=== PATIENT | female | born 1960 | race American Indian/Alaskan Native ===

== ENCOUNTER 2017-11-25 10:12 | Emergency (ER) | payer OTHER, BC ==
[2017-11-25 10:29] VITALS: RESP 18; TEMP 98.4; BMI 37.5
[2017-11-25 12:26] VITALS: BP 157/90; PULSE 80; O2SAT 98
--- NOTE | 2017-11-25 12:30 | RAD ---
PROCEDURE: Right Knee Radiographs. HISTORY: knee pain s/p trauma COMPARISON: None. FINDINGS: BONES: Bone alignment and mineralization are normal. There is no acute displaced fracture or bone destruction. JOINTS: There is mild tricompartmental degenerative osteoarthrosis with reduced joint spaces and marginal spurring, worse in the medial compartment. JOINT EFFUSION: There is a small suprapatellar joint effusion. OTHER FINDINGS: None. IMPRESSION: No acute fracture or dislocation. Mild tricompartmental degenerative osteoarthrosis, worse in the medial compartment. Small suprapatellar joint effusion
--- NOTE | 2017-11-25 12:30 | ED PDOC ---
Arrival/HPI - General Chief Complaint: Trauma Time Seen by Provider: 11/25/17 10:38 Historian: Patient - History of Present Illness Narrative History of Present Illness (Text): 11/25/17 12:26 57yo female with PMhx of hypertension who present to ED with complaint of right knee and ankle pain s/p trauma yesterday. Patient states her feet got caught on something yesterday s she twisted her ankle, fell and hit knee on the floor. Notes that pain started this morning with ambulation. Did not take any medication. Paul LOc, nausea, vomiting, focal weakness, any other complaint. Past Medical History - Provider Review Nursing Documentation Reviewed: Yes - Infectious Disease Hx of Infectious Diseases: None - Tetanus Immunization Tetanus Immunization: Unknown - Reproductive Menopause: Yes - Cardiac Hx Cardiac Disorders: Yes Hx Hypertension: Yes - Pulmonary Hx Respiratory Disorders: No - Neurological Hx Neurological Disorder: No - HEENT Hx HEENT Disorder: No - Renal Hx Renal Disorder: No - Endocrine/Metabolic Hx Endocrine Disorders: No - Hematological/Oncological Hx Blood Disorders: No Hx Blood Transfusions: No Hx Blood Transfusion Reaction: No - Integumentary Hx Dermatological Disorder: No - Musculoskeletal/Rheumatological Hx Musculoskeletal Disorders: No - Gastrointestinal Hx Gastrointestinal Disorders: No - Genitourinary/Gynecological Hx Genitourinary Disorders: No - Psychiatric Hx Psychophysiologic Disorder: No Hx Emotional Abuse: No Hx Physical Abuse: No Hx Substance Use: No - Surgical History Hx Hysterectomy: Yes (partial) Other/Comment: fibroid removal - Anesthesia Hx Anesthesia: Yes Hx Anesthesia Reactions: No Hx Malignant Hyperthermia: No - Suicidal Assessment Feels Threatened In Home Enviroment: No Family/Social History - Physician Review Nursing Documentation Reviewed: Yes Family/Social History: Unknown Family HX Smoking Status: Never Smoked Hx Alcohol Use: No Hx Substance Use: No Hx Substance Use Treatment: No Allergies/Home Meds Allergies/Adverse Reactions: Allergies shellfish derived Allergy (Verified 09/07/16 23:40) ITCHING Home Medications: Home Meds Medication Instructions Recorded Confirmed Esomeprazole Magnesium [Nexium] 40 mg PO DAILY 12/29/12 11/25/17 Enalapril Maleate [Vasotec] 2 mg PO DAILY 11/25/17 11/25/17 Review of Systems - Physician Review All systems were reviewed & negative as marked: Yes - Review of Systems Constitutional: Normal Eyes: Normal ENT: Normal Respiratory: Normal Cardiovascular: Normal Gastrointestinal: Normal Genitourinary Female: Normal Musculoskeletal: Arthralgias (right knee/ankle pain) Skin: Normal Neurological: Normal Endocrine: Normal Hemo/Lymphatic: Normal Psychiatric: Normal Physical Exam Vital Signs Reviewed: Yes Vital Signs Temp Pulse Resp BP Pulse Ox 11/25/17 12:25 80 18 157/90 H 98 11/25/17 10:30 81 158/95 H 97 11/25/17 10:29 98.4 F 83 18 159/105 H 96 Temperature: Afebrile Blood Pressure: Normal Pulse: Regular Respiratory Rate: Normal Appearance: Positive for: Well-Appearing, Non-Toxic, Comfortable Pain Distress: None Mental Status: Positive for: Alert and Oriented X 3 - Systems Exam Head: Present: Atraumatic, Normocephalic Pupils: Present: PERRL Extroacular Muscles: Present: EOMI Conjunctiva: Present: Normal Mouth: Present: Moist Mucous Membranes Neck: Present: Normal Range of Motion Respiratory/Chest: Present: Clear to Auscultation, Good Air Exchange. No: Respiratory Distress, Accessory Muscle Use Cardiovascular: Present: Regular Rate and Rhythm, Normal S1, S2. No: Murmurs Abdomen: Present: Normal Bowel Sounds. No: Tenderness, Distention, Peritoneal Signs Back: Present: Normal Inspection Upper Extremity: Present: Normal Inspection. No: Cyanosis, Edema Lower Extremity: Present: NORMAL PULSES, Normal ROM, Tenderness (Right medial ankle and over the right knee patellar), Neurovascularly Intact. No: Edema, Swelling, Erythema, Deformity Neurological: Present: GCS=15, CN II-XII Intact, Speech Normal Skin: Present: Warm, Dry, Normal Color. No: Rashes Psychiatric: Present: Alert, Oriented x 3, Normal Insight, Normal Concentration Medical Decision Making ED Course and Treatment: 11/25/17 12:29 right knee/ankle xray - Negative fractire Resutl was DW the pt. Knee immobilizer place and leonid wrap applied to ankle. Pt referredto ortho. Advised to RICE knee/foot - RAD Interpretation Radiology Orders: 11/25/17 10:38 KNEE W PATELLA RIGHT 3 VIEW [RAD] Stat 11/25/17 10:39 ANKLE RIGHT 3 VIEWS ROUTINE [RAD] Stat - Medication Orders Current Medication Orders: Discontinued Medications Ibuprofen (Motrin Tab) 600 mg PO STAT STA Stop: 11/25/17 10:40 Last Admin: 11/25/17 11:05 Dose: 600 mg MAR Pain/Vitals Document 11/25/17 11:05 SF (Rec: 11/25/17 11:05 [id number]) Pain Reassessment Is This A Pain ReAssessment? Yes Sleep Is patient sleeping during reassessment? No Presence of Pain Presence of Pain Yes Pain Scale Used Pain Scale Used Numeric Disposition/Present on Arrival - Present on Arrival Any Indicators Present on Arrival: No History of DVT/PE: No History of Uncontrolled Diabetes: No Urinary Catheter: No History of Decub. Ulcer: No History Surgical Site Infection Following: None - Disposition Have Diagnosis and Disposition been Completed?: Yes Diagnosis: Knee sprain, Ankle sprain Disposition: HOME/ ROUTINE Disposition Time: 12:45 Patient Plan: Discharge Condition: STABLE Discharge Instructions (ExitCare): Ankle Sprain (DC), Knee Sprain (DC) Additional Instructions: Rest, ice, compress and elevate knee/ankle follow up with orthopedist Return to ED for any new symptoms Prescriptions: Ibuprofen [Motrin Tab] 800 mg PO Q6 #20 tab Referrals: Josefa White MD [Primary Care Provider] - Follow up with primary Rome Moore DO [Staff Provider] - Follow up with primary Forms: [employer] (Fijian), WORK NOTE
--- NOTE | 2017-11-25 12:35 | RAD ---
PROCEDURE: Right Ankle Radiographs. HISTORY: Ankle pain, s/p trauma COMPARISON: None FINDINGS: BONES: Bone alignment and mineralization are normal. There is no acute displaced fracture or bone destruction. There is a small plantar calcaneal spur. There is an os trigonum. There is a well corticated ossific density medial to the medial malleolus most compatible with accessory ossifications center JOINTS: There is mild degenerative osteoarthrosis in the talonavicular and subtalar joints with SOFT TISSUES: There is mild medial soft tissue swelling. OTHER FINDINGS: None. IMPRESSION: No acute fracture or dislocation. Mild medial soft tissue swelling.
== END 2017-11-25 13:10 | disposition home or self-care (01) ==
LOC: ED 10:12
DX: S83.91XA Sprain of unspecified site of right knee, initial encounter (principal); S93.401A Sprain of unspecified ligament of right ankle, initial encounter; W19.XXXA Unspecified fall, initial encounter; I10 Essential (primary) hypertension

== ENCOUNTER 2018-01-31 07:23 | Emergency (ER) | payer OTHER ==
[2018-01-31 07:24] VITALS: BMI 37.5
[2018-01-31 07:44] VITALS: BP 167/94; PULSE 86; RESP 18; TEMP 98.5; O2SAT 98
--- NOTE | 2018-01-31 07:54 | ED PDOC ---
Arrival/HPI - General Chief Complaint: Lower Extremity Problem/Injury Time Seen by Provider: 01/31/18 07:30 Historian: Patient - History of Present Illness Narrative History of Present Illness (Text): 01/31/18 07:45 A 57 year old female, whose past medical history includes hypertension, presents to the emergency department complaining of worsening right knee pain over the past 2 days. Patient reports a mechanical fall 2 months ago where she injured her right knee and ankle. Patient was treated and discharged home on Motrin and Alleve. Patient notes she was ambulating with a cane until a few days ago. Patient denies any new recent falls or trauma. Patient denies fever, chills, nausea, vomiting, abdominal pain, chest pain, shortness of breath, numbness, tingling or any other complaints. Patient has a scheduled appointment with Dr. Villasenor in 1 week. PMD: Dr. White Orthopedist: Dr. Villasenor Time/Duration: Other (2 days) Symptom Course: Worsening Quality: Aching Context: Home Past Medical History - Provider Review Nursing Documentation Reviewed: Yes - Infectious Disease Hx of Infectious Diseases: None - Tetanus Immunization Tetanus Immunization: Unknown - Reproductive Menopause: Yes - Cardiac Hx Cardiac Disorders: Yes Hx Hypertension: Yes - Pulmonary Hx Respiratory Disorders: No - Neurological Hx Neurological Disorder: No - HEENT Hx HEENT Disorder: No - Renal Hx Renal Disorder: No - Endocrine/Metabolic Hx Endocrine Disorders: No - Hematological/Oncological Hx Blood Disorders: No Hx Blood Transfusions: No Hx Blood Transfusion Reaction: No - Integumentary Hx Dermatological Disorder: No - Musculoskeletal/Rheumatological Hx Musculoskeletal Disorders: No - Gastrointestinal Hx Gastrointestinal Disorders: No - Genitourinary/Gynecological Hx Genitourinary Disorders: No - Psychiatric Hx Psychophysiologic Disorder: No Hx Emotional Abuse: No Hx Physical Abuse: No Hx Substance Use: No - Surgical History Hx Hysterectomy: Yes (partial) Other/Comment: fibroid removal - Anesthesia Hx Anesthesia: Yes Hx Anesthesia Reactions: No Hx Malignant Hyperthermia: No - Suicidal Assessment Feels Threatened In Home Enviroment: No Family/Social History - Physician Review Nursing Documentation Reviewed: Yes Family/Social History: No Known Family HX Smoking Status: Never Smoked Hx Alcohol Use: No Hx Substance Use: No Hx Substance Use Treatment: No Allergies/Home Meds Allergies/Adverse Reactions: Allergies shellfish derived Allergy (Verified 01/31/18 07:38) ITCHING Home Medications: Home Meds Medication Instructions Recorded Confirmed Enalapril Maleate [Vasotec] 2 mg PO DAILY 11/25/17 01/31/18 Review of Systems - Physician Review All systems were reviewed & negative as marked: Yes - Review of Systems Constitutional: absent: Fevers, Night Sweats Respiratory: absent: SOB Cardiovascular: absent: Chest Pain Gastrointestinal: absent: Abdominal Pain, Nausea, Vomiting Musculoskeletal: Other (right knee pain) Neurological: absent: Focal Weakness Physical Exam Vital Signs Reviewed: Yes Vital Signs Temp Pulse Resp BP Pulse Ox 01/31/18 07:38 98.5 F 86 18 167/94 H 98 Temperature: Afebrile Blood Pressure: Hypertensive Pulse: Regular Respiratory Rate: Normal Appearance: Positive for: Well-Appearing, Non-Toxic, Comfortable Pain Distress: None Mental Status: Positive for: Alert and Oriented X 3 - Systems Exam Head: Present: Atraumatic, Normocephalic Lower Extremity: Present: Normal Inspection, NORMAL PULSES, Normal ROM (in right knee and ankle), Neurovascularly Intact. No: Edema, CALF TENDERNESS, Tenderness, Swelling, Erythema, Deformity, Temperature Abnormalties Neurological: Present: GCS=15, CN II-XII Intact, Speech Normal Skin: Present: Warm, Dry, Normal Color. No: Rashes Psychiatric: Present: Alert, Oriented x 3, Normal Insight, Normal Concentration Medical Decision Making ED Course and Treatment: 01/31/18 07:45 Impression: A 57 year old female with worsening right knee pain. History of prior injury from a mechanical fall 2 months ago. Differential Diagnosis included but are not limited to: Right knee pain Plan: -- Toradol -- Reassess and disposition Progress Notes: 01/31/18 07:55 I have discussed the plan with the patient, who expresses understanding. Matteo wrap applied to knee. Patient in agreement with plan to be discharged home. Patient is stable for discharge. Patient was instructed to follow up with orthopedist or return if symptoms worsen or new concerning symptoms arise. - Medication Orders Current Medication Orders: Discontinued Medications Ketorolac Tromethamine (Toradol) 30 mg IM STAT STA Stop: 01/31/18 07:54 Last Admin: 01/31/18 08:06 Dose: 30 mg MAR Pain Assessment Document 01/31/18 08:06 MARCK (Rec: 01/31/18 08:07 MARCK [id number]) Pain Reassessment Is this a pain reassessment? Yes Sleep Is patient sleeping during reassessment? No Location Left, Right or Bilateral Right Pain Location Body Site Knee IM Administration Charges Document 01/31/18 08:06 [facility] [place] (Rec: 01/31/18 08:07 [id number] Charges for Administration # of IM Administrations 1 - Scribe Statement The provider has reviewed the documentation as recorded by the Scribe Darshana Diehl Provider Scribe Attestation: All medical record entries made by the Scribe were at my direction and personally dictated by me. I have reviewed the chart and agree that the record accurately reflects my personal performance of the history, physical exam, medical decision making, and the department course for this patient. I have also personally directed, reviewed, and agree with the discharge instructions and disposition. Disposition/Present on Arrival - Present on Arrival Any Indicators Present on Arrival: No History of DVT/PE: No History of Uncontrolled Diabetes: No Urinary Catheter: No History of Decub. Ulcer: No History Surgical Site Infection Following: None - Disposition Have Diagnosis and Disposition been Completed?: Yes Diagnosis: Knee pain Disposition: HOME/ ROUTINE Disposition Time: 07:55 Patient Plan: Discharge Condition: IMPROVED Discharge Instructions (ExitCare): Chronic Knee Pain Additional Instructions: Ms Villalba, thank you for letting us take care of you today. Your provider was Dr. Abbasi. You were treated for Knee Pain. The emergency medical care you received today was directed at your acute symptoms. If you were prescribed any medication, please fill it and take as directed. It may take several days for your symptoms to resolve. Return to the Emergency Department if your symptoms worsen, do not improve, or if you have any other problems. Please contact your doctor or call one of the physicians/clinics you have been referred to that are listed on the Patient Visit Information form that is included in your discharge packet. Bring any paperwork you were given at discharge with you along with any medications you are taking to your follow up visit. Our treatment cannot replace ongoing medical care by a primary care provider (PCP) outside of the emergency department. Thank you for allowing the [facility] team to be part of your care today. If you had an X-Ray or CT scan: A Radiologist will review the ED reading if any change in treatment is needed we will contact you. If you had a blood, urine, or wound culture: It will take several days for the results, if any change in treatment is needed we will contact you. If you had an STI test: It will take 48 hours for the results. Please call after 1 week if you have not heard back. Prescriptions: Ibuprofen [Motrin] 600 mg PO Q6 PRN #30 tab PRN Reason: Pain, Moderate (4-7) Referrals: Adama Villasenor MD [Medical Doctor] - Follow up with primary Forms: [employer] (Greenlandic), WORK NOTE
== END 2018-01-31 08:13 | disposition home or self-care (01) ==
LOC: ED 07:23
DX: M25.561 Pain in right knee (principal)
CPT/HCPCS: 96372; 99283; J1885

== ENCOUNTER 2018-10-18 12:23 | Emergency (ER) | payer OTHER ==
[2018-10-18 12:23] VITALS: BMI 37.5
[2018-10-18 12:31] VITALS: RESP 18; TEMP 98.8; O2SAT 98
--- NOTE | 2018-10-18 12:52 | ED PDOC ---
Arrival/HPI - General Chief Complaint: Allergic Reaction Time Seen by Provider: 10/18/18 12:30 Historian: Patient - History of Present Illness Narrative History of Present Illness (Text): 10/18/18 12:55 A 58 year old female, whose past medical history includes hypertension, presents to the emergency department complaining of rash for the past 3 days. Patient reports she's had a cold last week and took NyQuil for it. 3 days ago, patient developed an itchy rash cheeks, arms, abdomen, chest, and back. Denies any new detergent, lotions, changes in diet, or any recent travel. Only allergy is to shellfish to which she denies recent ingestion. Patient denies any fever, chills, throat/lips/mouth swelling, shortness of breath, chest pain, headache, dizziness, or any other complaints at this time. PMD: Dr. White Past Medical History - Provider Review Nursing Documentation Reviewed: Yes - Infectious Disease Hx of Infectious Diseases: None - Tetanus Immunization Tetanus Immunization: Unknown - Cardiac Hx Cardiac Disorders: Yes Hx Hypertension: Yes - Pulmonary Hx Respiratory Disorders: No - Neurological Hx Neurological Disorder: No - HEENT Hx HEENT Disorder: No - Renal Hx Renal Disorder: No - Endocrine/Metabolic Hx Endocrine Disorders: No - Hematological/Oncological Hx Blood Disorders: No Hx Blood Transfusions: No Hx Blood Transfusion Reaction: No - Integumentary Hx Dermatological Disorder: No - Musculoskeletal/Rheumatological Hx Musculoskeletal Disorders: No - Gastrointestinal Hx Gastrointestinal Disorders: No - Genitourinary/Gynecological Hx Genitourinary Disorders: No - Psychiatric Hx Psychophysiologic Disorder: No Hx Emotional Abuse: No Hx Physical Abuse: No Hx Substance Use: No - Surgical History Hx Hysterectomy: Yes (partial) Other/Comment: fibroid removal - Anesthesia Hx Anesthesia: Yes Hx Anesthesia Reactions: No Hx Malignant Hyperthermia: No - Suicidal Assessment Feels Threatened In Home Enviroment: No Family/Social History - Physician Review Nursing Documentation Reviewed: Yes Family/Social History: No Known Family HX Smoking Status: Never Smoked Hx Alcohol Use: No Hx Substance Use: No Hx Substance Use Treatment: No Allergies/Home Meds Allergies/Adverse Reactions: Allergies shellfish derived Allergy (Verified 01/31/18 07:38) ITCHING Home Medications: Home Meds Medication Instructions Recorded Confirmed Enalapril Maleate [Vasotec] 2 mg PO DAILY 11/25/17 01/31/18 Review of Systems - Physician Review All systems were reviewed & negative as marked: Yes - Review of Systems Constitutional: Normal. absent: Fevers, Night Sweats Eyes: Normal. absent: Vision Changes ENT: Normal. absent: Sore Throat, Other (no throat/lip/mouth swelling.) Respiratory: Normal. absent: SOB, Cough Cardiovascular: Normal. absent: Chest Pain, Palpitations, Syncope Gastrointestinal: Normal. absent: Abdominal Pain, Stool Changes, Nausea, Vomiting, Appetite Changes Genitourinary Female: Normal. absent: Dysuria, Frequency Musculoskeletal: Normal. absent: Arthralgias, Back Pain Skin: Rash (rash to cheeks, arms, abdomen, chest, and back.) Neurological: absent: Headache, Dizziness Endocrine: Normal Hemo/Lymphatic: Normal Psychiatric: Normal Physical Exam Vital Signs Reviewed: Yes Vital Signs Temp Pulse Resp BP Pulse Ox 10/18/18 12:23 98.8 F 94 H 18 163/95 H 98 Temperature: Afebrile Blood Pressure: Hypertensive Pulse: Regular Respiratory Rate: Normal Appearance: Positive for: Well-Appearing, Non-Toxic, Comfortable Pain Distress: None Mental Status: Positive for: Alert and Oriented X 3 - Systems Exam Head: Present: Atraumatic, Normocephalic Pupils: Present: PERRL Extroacular Muscles: Present: EOMI Conjunctiva: Present: Normal Ears: Present: Normal Mouth: Present: Moist Mucous Membranes, Normal Lips, Normal Tounge. No: Other (No mouth swelling) Pharnyx: Present: Normal, Other (NO swelling). No: Peritonsilar Swelling, Soft Palate/Uvular Edema Nose (External): Present: Atraumatic Nose (Internal): Present: Normal Inspection Neck: Present: Normal Range of Motion. No: Meningeal Signs, MIDLINE TENDERNESS, Paraspinal Tenderness Respiratory/Chest: Present: Clear to Auscultation, Good Air Exchange. No: Respiratory Distress, Accessory Muscle Use Cardiovascular: Present: Regular Rate and Rhythm, Normal S1, S2 Abdomen: Present: Normal Bowel Sounds. No: Tenderness, Distention, Peritoneal Signs Back: No: CVA Tenderness, Midline Tenderness, Paraspinal Tenderness Upper Extremity: Present: Normal ROM, NORMAL PULSES, Neurovascularly Intact, Capillary Refill < 2s. No: Cyanosis, Edema, Temperature Abnormalties Lower Extremity: Present: Normal Inspection, NORMAL PULSES, Normal ROM, Neurovascularly Intact, Capillary Refill < 2 s. No: Edema, Temperature Abnormalties Neurological: Present: GCS=15, CN II-XII Intact, Speech Normal, Motor Func Grossly Intact, Normal Sensory Function, Gait Normal Skin: Present: Dry, Rashes (multiple erythematous blanchable wheals scattered over cheeks, arms, abdomen, chest, and back) Lymphatic: No: Cervical Adenopathy Psychiatric: Present: Alert, Oriented x 3, Normal Insight, Normal Concentration, Normal Affect, Normal Mood Medical Decision Making ED Course and Treatment: 10/18/18 12:56 Impression: 58 year old female with rash on cheeks, arms, abdomen, chest, and back. Plan: -- Benadryl -- Pepcid -- PredniSONE -- Reassess and disposition Progress Notes: 10/18/18 14:10 Patient reports feeling better after medication, requesting discharge home. Will discharge home with PMD and dermatology followup and course of prednisone and pepcid x 4 days. Diagnostic testing results and plan of care discussed with patient. Strict instructions given regarding prescription use, importance of followup, and signs/symptoms to return to ER including lip/mouth/throat swelling, worsening rash, fever, chills, or any other new/worsening symptoms. Pt verbalized understanding of discussion. Patient is A&Ox3, ambluating with steady gait, with vital signs stable for discharge. - Medication Orders Current Medication Orders: Discontinued Medications Diphenhydramine HCl (Benadryl) 50 mg PO STAT STA Stop: 10/18/18 12:43 Famotidine (Pepcid) 20 mg PO STAT STA Stop: 10/18/18 12:43 Prednisone (Prednisone Tab) 60 mg PO STAT ONE Stop: 10/18/18 12:43 - Scribe Statement The provider has reviewed the documentation as recorded by the Navya Taylor Provider Scribe Attestation: All medical record entries made by the Scribe were at my direction and personally dictated by me. I have reviewed the chart and agree that the record accurately reflects my personal performance of the history, physical exam, medical decision making, and the department course for this patient. I have also personally directed, reviewed, and agree with the discharge instructions and disposition. Disposition/Present on Arrival - Present on Arrival Any Indicators Present on Arrival: No History of DVT/PE: No History of Uncontrolled Diabetes: No Urinary Catheter: No History of Decub. Ulcer: No History Surgical Site Infection Following: None - Disposition Have Diagnosis and Disposition been Completed?: Yes Diagnosis: Urticaria Disposition: HOME/ ROUTINE Disposition Time: 14:11 Patient Plan: Discharge Condition: IMPROVED Discharge Instructions (ExitCare): Hives (DC) Additional Instructions: Increase fluids Prednisone once daily x 4 days Pepcid every 12 hours x 4 days Benadryl every 6 hours as needed Followup with primary doctor today Followup with dermatology within 2 days Return to ER with any new/worsening symptoms Prescriptions: DiphenhydrAMINE [Benadryl] 25 mg PO Q6H PRN #12 cap PRN Reason: Itching / Pruritus Famotidine [Pepcid] 20 mg PO Q12H #9 tab predniSONE [predniSONE Tab] 20 mg PO DAILY #4 tab Referrals: Josefa White MD [Primary Care Provider] - Follow up with primary Cris Osorio MD [Staff Provider] - Follow up with primary Forms: [employer] (Mosotho), WORK NOTE
[2018-10-18 15:17] VITALS: BP 169/87; PULSE 78
== END 2018-10-18 15:16 | disposition home or self-care (01) ==
LOC: ED 12:23
DX: L50.9 Urticaria, unspecified (principal)

== ENCOUNTER 2018-10-21 07:28 | Outpatient (CLI) | payer OTHER | END 2018-10-21 07:29 | disposition home or self-care (01) | LOC: LAB 07:28 ==

== ENCOUNTER 2018-11-04 08:06 | Outpatient (CLI) | payer OTHER | END 2018-11-04 08:07 | disposition home or self-care (01) | LOC: LAB 08:06 ==

== ENCOUNTER 2018-12-02 09:19 | Outpatient (CLI) | payer OTHER | END 2018-12-02 09:20 | disposition home or self-care (01) | LOC: RAD 09:19 ==